=== PATIENT | male | born 2000 | race African-American/Black ===

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

== ENCOUNTER 2022-10-15 03:36 | Emergency (ER) | payer BC, MEDICAID | END 2022-10-15 05:40 | disposition home or self-care (01) | LOC: JD.ED 03:36 | DX: K59.01 Slow transit constipation (principal) | CPT/HCPCS: 74018; 74018-26; 99282; 99284 ==

== ENCOUNTER 2022-12-18 16:27 | Emergency (ER) | payer MEDICAID | END 2022-12-18 17:58 | disposition home or self-care (01) | LOC: JD.ED 16:27 | DX: G40.909 Epilepsy, unspecified, not intractable, without status epilepticus (principal); Z86.16 Personal history of COVID-19; Z79.899 Other long term (current) drug therapy | CPT/HCPCS: 99283; 99284 ==